=== PATIENT | female | born 1960 | race Caucasian/White ===

== ENCOUNTER 2017-05-21 10:14 | Emergency (ER) | payer MEDICAID ==
[~2017-05-21] VITALS: Ht 162.6 cm; Wt 42.6 kg
[2017-05-21 10:44] LABS: BASOPHILS # (AUTO) 0.1 X10'3 (0-0.2); BASOPHILS % (AUTO) 0.9 % (0-1); EOSINOPHILS # (AUTO) 0.1 X10'3 (0-0.9); EOSINOPHILS % (AUTO) 1.3 % (0-6); HEMATOCRIT 45.8 % (35.0-45.0); HEMOGLOBIN 15.7 g/dl (12.0-16.0); LYMPHOCYTES # (AUTO) 2.3 X10'3 (1.1-4.8); LYMPHOCYTES % (AUTO) 21.9 % (21-51); MEAN CORPUSCULAR HEMOGLOBIN 33.8 PG (27.0-31.0); MEAN CORPUSCULAR HGB CONC 34.3 % (33.0-36.5); MEAN CORPUSCULAR VOLUME 98.5 FL (78-98); MEAN PLATELET VOLUME 7.9 FL (7.4-10.4); MONOCYTES # (AUTO) 0.8 X10'3 (0-0.9); MONOCYTES % (AUTO) 7.9 % (2-12); NEUTROPHILS # (AUTO) 7.1 X10'3 (1.8-7.7); PLATELET COUNT 230 X10'3 (140-440); RED BLOOD COUNT 4.65 X10'6 (4.20-5.60); RED CELL DISTRIBUTION WIDTH 12.3 % (11.5-14.5); WHITE BLOOD COUNT 10.4 X10'3 (4.5-11.0)
[2017-05-21 10:56] LABS: INR 1.1 INR; PARTIAL THROMBOPLASTIN TIME 24 SECONDS (22-32); PROTHROMBIN TIME 11.4 SECONDS (9.0-12.0)
[2017-05-21 10:59] LABS: ALANINE AMINOTRANSFERASE 33 U/L (12-78); ALBUMIN 3.8 G/DL (3.4-5.0); ALBUMIN/GLOBULIN RATIO 1.1 (1.1-1.5); ALKALINE PHOSPHATASE 72 IU/L (46-116); ANION GAP 9 (8-16); ASPARTATE AMINO TRANSFERASE 20 U/L (10-37); BILIRUBIN,TOTAL 0.7 MG/DL (0.1-1.0); BLOOD UREA NITROGEN 34 MG/DL (7-18); CALCIUM 9.9 MG/DL (8.5-10.1); CHLORIDE 97 MMOL/L (99-107); CREATININE 1.26 MG/DL (0.40-0.90); GLUCOSE 321 MG/DL (70-104); POTASSIUM 3.7 MMOL/L (3.5-5.1); SODIUM 136 MMOL/L (135-145); TOTAL PROTEIN 7.3 G/DL (6.4-8.2); eGFR 44 ML/MIN
[2017-05-21] MEDS ORDERED: normal saline 1000ML IV soln IVB ONE (12:20)
[2017-05-21 15:35] VITALS: BP 17/67
== END 2017-05-21 15:37 | disposition home or self-care (01) ==
LOC: ER 10:14
DX: R42 Dizziness and giddiness (principal); R53.1 Weakness; I10 Essential (primary) hypertension; F12.10 Cannabis abuse, uncomplicated; Z88.1 Allergy status to other antibiotic agents; Z88.5 Allergy status to narcotic agent
CPT/HCPCS: 36415; 71045; 80053; 82948; 84484; 85025; 85610; 85730; 93005; 96360; 99285; J7030

== ENCOUNTER 2018-04-28 09:32 | Emergency (ER) | payer MEDICAID ==
[~2018-04-28] VITALS: Ht 162.6 cm; Wt 43.6 kg
[2018-04-28 09:44] VITALS: BP 159/96
--- NOTE | 2018-04-28 09:55 | NUR ---
PT REPORTS "I FELL SICK, I'M TIRED AND I CAN'T EAT".
[2018-04-28] MEDS ORDERED: ONDA4TAB6 PO (12:09)
== END 2018-04-28 12:23 | disposition home or self-care (01) ==
LOC: ER 09:32
DX: J20.9 Acute bronchitis, unspecified (principal); E78.00 Pure hypercholesterolemia, unspecified; I10 Essential (primary) hypertension; J44.9 Chronic obstructive pulmonary disease, unspecified; F12.90 Cannabis use, unspecified, uncomplicated; Z88.1 Allergy status to other antibiotic agents; Z88.6 Allergy status to analgesic agent
CPT/HCPCS: 71045; 99283

== ENCOUNTER 2022-01-26 15:46 | Emergency (ER) | payer MEDICAID ==
[~2022-01-26 15:46] MED LIST: ONDA4TAB6 PO
[2022-01-27] MEDS ORDERED: IBUP-1985 PO (15:11)
[2022-01-27] MEDS ORDERED: HYDR-3964 PO (15:11)
== END 2022-01-26 19:29 | disposition left against medical advice (07) ==
LOC: ER 15:48
DX: M25.569 Pain in unspecified knee (principal); Z53.21 Procedure and treatment not carried out due to patient leaving prior to being seen by health care provider

== ENCOUNTER 2022-01-27 11:00 | Emergency (ER) | payer MEDICAID ==
[~2022-01-27] VITALS: Ht 162.6 cm; Wt 108.0 kg
[2022-01-27 11:09] VITALS: BP 146/73
[2022-01-27] MEDS ORDERED: morphine 10mg/ml inj. IM ONE (11:50)
[2022-01-27] MEDS ORDERED: ondansetron 4mg rapidly disintigrating tab PO ONE (11:55)
[2022-01-27] MEDS ORDERED: HYDR-3964 PO (15:11)
[2022-01-27] MEDS ORDERED: IBUP-1985 PO (15:11)
== END 2022-01-27 15:50 | disposition home or self-care (01) ==
LOC: ER 11:00
DX: S82.001A Unspecified fracture of right patella, initial encounter for closed fracture (principal); E78.00 Pure hypercholesterolemia, unspecified; I10 Essential (primary) hypertension; J44.9 Chronic obstructive pulmonary disease, unspecified; F12.10 Cannabis abuse, uncomplicated; Z88.1 Allergy status to other antibiotic agents; Z88.5 Allergy status to narcotic agent; Z79.899 Other long term (current) drug therapy; W01.0XXA Fall on same level from slipping, tripping and stumbling without subsequent striking against object, initial encounter; Y93.89 Activity, other specified; Y92.89 Other specified places as the place of occurrence of the external cause; Y99.8 Other external cause status
CPT/HCPCS: 29530; 73564; 73700; 96372; 99284; J2274

== ENCOUNTER 2023-03-01 20:17 | Emergency (ER) | payer MEDICAID ==
[~2023-03-01] VITALS: Ht 162.6 cm; Wt 48.4 kg
[~2023-03-01 20:17] MED LIST changes: +IBUP-1985 PO
[2023-03-01 22:05] VITALS: TEMP 99.3
[2023-03-02 01:11] VITALS: BP 144/86; PULSE 100; RESP 16; O2SAT 92
[2023-03-02] MEDS ORDERED: ONDA4TAB12 PO (01:18)
[2023-03-02] MEDS ORDERED: ondansetron 4mg rapidly disintigrating tab PO ONE (01:20)
== END 2023-03-02 02:41 | disposition home or self-care (01) ==
LOC: ER 20:17
DX: J11.1 Influenza due to unidentified influenza virus with other respiratory manifestations (principal); Z20.822 Contact with and (suspected) exposure to COVID-19; I10 Essential (primary) hypertension; E78.00 Pure hypercholesterolemia, unspecified; J44.9 Chronic obstructive pulmonary disease, unspecified; Z88.1 Allergy status to other antibiotic agents; Z79.899 Other long term (current) drug therapy
CPT/HCPCS: 36415; 87502; 87503; 87811; 99283